=== PATIENT | female | born 1990 | race Asian ===

== ENCOUNTER 2018-09-12 14:25 | Outpatient (CLI) | payer OTHER | END 2018-09-12 14:26 | disposition home or self-care (01) | LOC: CTENTCT 14:25 | PROVIDERS: ATTEND Otolaryngology Plastic Surgery within the Head & Neck | DX: J32.9 Chronic sinusitis, unspecified (principal) | CPT/HCPCS: 70486 ==

== ENCOUNTER 2018-12-11 07:04 | Day surgery (SDC) | payer OTHER ==
[2018-12-10 13:35] VITALS: BMI 27.7
[2018-12-11] MEDS ORDERED: Oxymetazoline HCl 0.05% ( 15 ML ) ONE ×2 (08:00→08:52)
[2018-12-11 08:34] LABS: BHCG - Serum Negative (NEGATIVE); Pregs Control Background? CLEAR/WHITE (CLR/WHITE); Pregs Control Bar Appear? YES (CONTROL BAR)
[2018-12-11] MEDS ORDERED: Scopolamine 1.5 mg/72 hour Patch ONE (08:52)
[2018-12-11] MEDS ORDERED: Lidocaine 1% w/Epinephrine 1:100K 20 ML VIAL ONE (08:52)
[2018-12-11] MEDS ORDERED: Bacitracin Zinc Ointment 30 gm TUBE ONE (08:52)
[2018-12-11] MEDS ORDERED: Meperidine HCl/PF 25 MG/ML VIAL ONE (08:58)
[2018-12-11] MEDS ORDERED: Fentanyl 100 MCG/2 ML VIAL ONE ×4 (08:58→11:04)
[2018-12-11] MEDS ORDERED: Hydrocodone-Acetamin 15 ML UDCUP ONE (11:53)
[2018-12-11] MEDS ORDERED: Lidocaine 1% PF 5 ML VIAL ONE ×2 (13:00)
[2018-12-11] MEDS ORDERED: PROPOFOL 200 MG/20 ML VIAL ONE (13:00)
[2018-12-11] MEDS ORDERED: Dexamethasone 20 MG/5 ML VIAL ONE (13:00)
[2018-12-11] MEDS ORDERED: Rocuronium Bromide 10 MG/ML (10ML VIAL) ONE (13:00)
[2018-12-11] MEDS ORDERED: Glycopyrrolate 0.2 MG/ML 5 ML SYRINGE ONE (13:00)
[2018-12-11] MEDS ORDERED: Ondansetron PF 4 MG/2 ML Vial ONE (13:00)
--- NOTE | 2018-12-12 15:36 | OP ---
DATE OF PROCEDURE: 12/11/2018 PREOPERATIVE DIAGNOSES: 1. Chronic rhinosinusitis. 2. Chronic adenotonsillitis. 3. Adenotonsillar hypertrophy. 4. Bilateral inferior turbinate hypertrophy. 5. Nasal obstruction. POSTOPERATIVE DIAGNOSES: 1. Chronic rhinosinusitis. 2. Chronic adenotonsillitis. 3. Adenotonsillar hypertrophy. 4. Bilateral inferior turbinate hypertrophy. 5. Nasal obstruction. PROCEDURES PERFORMED: 1. Bilateral endoscopic sinus surgery total ethmoidectomy. 2. Bilateral endoscopic sinus surgery maxillary antrostomies. 3. Bilateral endoscopic sinus surgery frontal sinusotomies. 4. Bilateral endoscopic sinus surgery sphenoidotomies. 5. Tonsillectomy and adenoidectomy. 6. Bilateral inferior turbinate submucosal resection. ESTIMATED BLOOD LOSS: 20 mL. COMPLICATIONS: None. ANESTHESIA: GETA. DESCRIPTION OF PROCEDURE: After consent was obtained, the patient was identified, brought to the operating room, and placed on the operating table in the supine position. General endotracheal anesthesia and intravenous access were obtained and we proceeded with positioning the patient for oropharyngeal surgery. Oropharyngeal exposure was obtained with a Adela-Stefan mouth gag after a head drape was placed and secured with a towel clip. The Adela-Stefan mouth gag was then suspended from the Colon tray and palatal elevation was achieved with a red rubber catheter. The right tonsil was addressed first. We used a curved Allis to grasp the tonsil and retract it medially as an anterior pillar incision was made. The retrotonsillar fascial plane was then established and blunt dissection was performed with the suction cautery. Blood vessels were anticipated, identified, and cauterized as they were encountered. Ultimately, dissection was carried to the posterior tonsillar pillar mucosa which was incised hemostatically, as well as the base of tongue connection. The tonsil was then passed off as a specimen and bleeding points within the tonsillar bed were cauterized under direct visualization. We subsequently turned our attention to the contralateral side, where using a similar technique, a near identical procedure was performed. Again, the tonsil was grasped and retracted medially with a curved Allis. The retrotonsillar fascial plane was established and while the anterior pillar was retracted medially. The hemostatic blunt dissection of the tonsil with a suction cautery was performed with blood vessels anticipated, identified, and cauterized as they were encountered. Again, dissection continued to the base of tongue and posterior tonsillar pillar mucosa which was incised in a hemostatic fashion. The tonsillar beds were then carefully inspected and bleeding points were identified and cauterized with a suction cautery. After this portion of the procedure, hemostasis was completely obtained. Under direct mirror visualization, we visualized the adenoid pad. Under direct mirror visualization, we removed the bulk of the adenoid tissue with the adenoid curette. We then packed the nasopharynx for an appropriate period of time with [id number] tonsillar sponges. After a period of observation, we removed the pack. Under indirect mirror visualization, we obtained hemostasis and vaporization of residual adenoid tissue with electrocautery. The patient's oral cavity was copiously irrigated with iced saline and subsequently suctioned. After completion of the procedure, the nasal cavity and oropharynx were irrigated and suctioned as were the gastric contents. The patient was then awakened and transferred to the recovery room where the patient remained in stable condition prior to discharge to Day Stay. Following this, the patient was placed in a beach chair position. Afrin pledgets were removed from the nasal cavity and 1% lidocaine with 1:100,000 epinephrine was injected into the inferior turbinates, middle turbinates, and lateral nasal wall bilaterally. Following this, middle turbinates were gently medialized using the Pepin elevator bilaterally and the uncinate process was identified. Following this, the uncinate process bilaterally was anteriorly fractured using a ball-ended probe. Following this, the uncinate was removed using the microdebrider and the upbiting Blakesley forceps. Following this, the natural maxillary sinus ostia was identified using a ball-ended probe and it was then gently widened using a curved microdebrider and straight Blakesley forceps bilaterally. Following this, the ethmoidal bulla was identified and was punctured on its medial and inferior aspect and was removed using the microdebrider bilaterally. Following this, the grand lamella was identified and was punctured into the posterior ethmoidal cells bilaterally and working from posterior to anterior, the ethmoidal cells were opened using the straight microdebrider and curved microdebrider. Following this, the sphenoid sinuses were approached through the previous ethmoidectomies where the attachment to this superior turbinate to the posterior nasal wall was identified, staying just medial and inferior to this spot, a Coley tip suction was used to create a sphenoidotomy bilaterally. The sphenoidotomy was then widened using the 0-degree microdebrider medially and inferiorly. Following this, a 45-degree endoscope along with a 40-degree microdebrider blade was used to further open the frontal recess cells and frontal sinus ostia area. Following this, the nasal cavity was irrigated and Mirapex was placed in the middle meatus. The inferior turbinates were then punctured on the anterior inferior aspect and submucosal resection was performed of the anterior inferior aspect of the inferior turbinates bilaterally. The patient tolerated the procedure well. Job ID: [id number]
== END 2018-12-11 13:00 | disposition home or self-care (01) ==
LOC: SDC 07:04
PROVIDERS: ATTEND Otolaryngology Plastic Surgery within the Head & Neck
PROC: 09TV8ZZ Resection of Left Ethmoid Sinus, Via Natural or Artificial Opening Endoscopic (ICD-10-PCS; principal; 2018-12-11)
PROC: 0CTPXZZ Resection of Tonsils, External Approach (ICD-10-PCS; principal; 2018-12-11)
PROC: 099R8ZZ Drainage of Left Maxillary Sinus, Via Natural or Artificial Opening Endoscopic (ICD-10-PCS; principal; 2018-12-11)
PROC: 09TL0ZZ Resection of Nasal Turbinate, Open Approach (ICD-10-PCS; principal; 2018-12-11)
PROC: 099X8ZZ Drainage of Left Sphenoid Sinus, Via Natural or Artificial Opening Endoscopic (ICD-10-PCS; principal; 2018-12-11)
PROC: 09TU8ZZ Resection of Right Ethmoid Sinus, Via Natural or Artificial Opening Endoscopic (ICD-10-PCS; principal; 2018-12-11)
PROC: 099Q8ZZ Drainage of Right Maxillary Sinus, Via Natural or Artificial Opening Endoscopic (ICD-10-PCS; principal; 2018-12-11)
PROC: 099W8ZZ Drainage of Right Sphenoid Sinus, Via Natural or Artificial Opening Endoscopic (ICD-10-PCS; principal; 2018-12-11)
PROC: 0CTQ0ZZ Resection of Adenoids, Open Approach (ICD-10-PCS; principal; 2018-12-11)
DX: J35.03 Chronic tonsillitis and adenoiditis (principal); J32.4 Chronic pansinusitis; J34.3 Hypertrophy of nasal turbinates; J34.89 Other specified disorders of nose and nasal sinuses; G47.30 Sleep apnea, unspecified
CPT/HCPCS: 84703; 85014; 88304; J1100; J2001; J2175; J2405; J2704; J3010

== ENCOUNTER 2019-07-25 20:28 | Emergency (ER) | payer OTHER ==
--- NOTE | 2019-07-25 21:48 | ULT ---
EXAM: Left lower extremity venous ultrasound HISTORY: Left lower extremity pain and edema COMPARISON: None TECHNIQUE: Multiplanar grayscale and color Doppler images were obtained in a left lower extremity estephanie ous ultrasound. Spectral analysis of the Doppler waveforms were performed. FINDINGS: The common femoral vein, profunda femoral vein, superficial femoral vein, and popliteal vei n are normal in appearance without visible thrombus. These vessels demonstrate normal compression, flow, and augmentation. The posterior tibial vein and greater saphenous vein are patent without evidence of thrombus. IMPRESSION: No evidence of DVT.
== END 2019-07-25 22:00 | disposition home or self-care (01) ==
LOC: ERS 20:28
DX: M79.662 Pain in left lower leg (principal); F41.9 Anxiety disorder, unspecified